=== PATIENT | male | born 1995 | race Caucasian/White ===

== ENCOUNTER 2017-09-24 09:33 | Emergency (ER) | payer SELFPAY ==
[~2017-09-24] VITALS: Ht 167.6 cm; Wt 59.0 kg
--- NOTE | 2017-09-24 09:37 | NUR ---
PT AMBULATES TO BED 7
[2017-09-24 09:41] VITALS: BP 128/85
--- NOTE | 2017-09-24 09:45 | NUR ---
PATIENT PRESENTS TO ED WITH COMPLAINTS OF COLD SYMPTOMS THAT STARTED THIS MORNING. PATIENT STATES HE FELL ASLEEP WITH THE AIR CONDITIONER ON AND IS NOW CONGESTED AND HAVING BODY ACHES. PATIENT DENIES FEVER. DENIES N/V/D; SKIN IS PINK/WARM/DRY; AAOX4 WITH EVEN AND STEADY GAIT; LUNGS CLEAR BL; HR EVEN AND REGULAR; PT DENIES ANY CP AND SOB AT THIS TIME; PATIENT STATES PAIN OF 0/10 AT THIS TIME; VSS; PATIENT POSITIONED FOR COMFORT; HOB ELEVATED; BEDRAILS UP X1; BED DOWN. ER MD MADE AWARE OF PT STATUS.
--- NOTE | 2017-09-24 10:40 | NUR ---
PATIENT SITTING UP IN BED, HAS NOT BEEN SEEN BY DR. MCKEON YET.
[2017-09-24 12:05] VITALS: BP 125/81
== END 2017-09-24 12:05 | disposition home or self-care (01) ==
LOC: MED 09:33
DX: J02.8 Acute pharyngitis due to other specified organisms (principal); B97.89 Other viral agents as the cause of diseases classified elsewhere
CPT/HCPCS: 99283